=== PATIENT | male | born 1960 | race Caucasian/White ===

== ENCOUNTER → 2019-10-18 | Outpatient (CLI) | payer BC | END | disposition home or self-care (01) | LOC: RADMRIMAIN 11:10 | PROVIDERS: ATTEND Family Medicine | DX: Z53.9 Procedure and treatment not carried out, unspecified reason (principal) ==

== ENCOUNTER → 2020-08-14 | Outpatient (CLI) | payer BC ==
[2020-08-14 10:24] LABS: Basophils % (A) 0 %; Eosinophils # (A) 0.2 k/uL (0-0.7); Eosinophils % (A) 1 %; HGB 16.5 gm/dL (13.0-17.5); Lymphocytes # (A) 1.9 k/uL (1.0-4.8); Lymphocytes % (A) 12 %; Mean Platelet Volume 7.7; Monocytes # (A) 0.7 k/uL (0-1.0); Monocytes % (A) 5 %; Neutrophils # (A) 12.3 k/uL (1.3-7.7); Neutrophils % (A) 81 %; Platelet Count 333 k/uL (150-450); RBC 5.33 m/uL (4.30-5.90); RDW 13.7 % (11.5-15.5); WBC 15.2 k/uL (3.8-10.6)
[2020-08-14 10:45] LABS: African American GFR (CKD) >90 (>60 ml/min/1.73 sqM); Anion Gap 12 mmol/L; Blood Urea Nitrogen 20 mg/dL (9-20); Calcium 10.2 mg/dL (8.4-10.2); Carbon Dioxide 27 mmol/L (22-30); Chloride 98 mmol/L (98-107); Glucose 255 mg/dL (74-99); Non-African American GFR(CKD) >90 (>60 ml/min/1.73 sqM); Sodium 137 mmol/L (137-145)
== END | disposition home or self-care (01) ==
LOC: LABPAT 09:18
PROVIDERS: ATTEND Urology
DX: Z01.818 Encounter for other preprocedural examination (principal); N20.0 Calculus of kidney; R35.0 Frequency of micturition
CPT/HCPCS: 80048; 85025; 87086

== ENCOUNTER 2020-08-21 08:52 | Observation (INO) | payer OTHER ==
[2020-08-21] MEDS ORDERED: SODIUM CHLORIDE 0.9% 1,000 ML IV STA (09:36)
[2020-08-21] MEDS ORDERED: KETOROLAC 15 MG/ML 1 ML VIAL IVP STA (09:36)
[2020-08-21] MEDS ORDERED: ONDANSETRON 4 MG/2 ML VIAL IVP STA (09:36)
[2020-08-21] MEDS ORDERED: HYDROmorphone 1 MG/ML 1 ML SYRINGE IVP STA ×3 (09:37→12:07)
[2020-08-21 10:23] LABS: Basophils # (A) 0.2 k/uL (0-0.2); Basophils % (A) 1 %; Eosinophils # (A) 0.3 k/uL (0-0.7); Eosinophils % (A) 2 %; HCT 47.9 % (39.0-53.0); HGB 16.5 gm/dL (13.0-17.5); Lymphocytes # (A) 2.3 k/uL (1.0-4.8); Lymphocytes % (A) 17 %; MCH 31.5 pg (25.0-35.0); MCHC 34.4 g/dL (31.0-37.0); MCV 91.6 fL (80.0-100.0); Mean Platelet Volume 9.5; Monocytes # (A) 0.8 k/uL (0-1.0); Monocytes % (A) 6 %; Neutrophils # (A) 10.2 k/uL (1.3-7.7); Neutrophils % (A) 74 %; Platelet Count 306 k/uL (150-450); RBC 5.23 m/uL (4.30-5.90); RDW 13.1 % (11.5-15.5); WBC 13.9 k/uL (3.8-10.6)
[2020-08-21 10:36] LABS: ALT 29 U/L (4-49); AST 29 U/L (17-59); African American GFR (CKD) >90 (>60 ml/min/1.73 sqM); Albumin 4.4 g/dL (3.5-5.0); Alkaline Phosphatase 65 U/L (38-126); Amylase 48 U/L (30-110); Anion Gap 10 mmol/L; Blood Urea Nitrogen 15 mg/dL (9-20); Calcium 9.9 mg/dL (8.4-10.2); Carbon Dioxide 25 mmol/L (22-30); Chloride 99 mmol/L (98-107); Glucose 150 mg/dL (74-99); Lipase 109 U/L (23-300); Non-African American GFR(CKD) >90 (>60 ml/min/1.73 sqM); Sodium 134 mmol/L (137-145); Total Bilirubin 1.2 mg/dL (0.2-1.3); Total Protein 7.4 g/dL (6.3-8.2)
[2020-08-21 10:39] LABS: Potassium 4.5 mmol/L (3.5-5.1)
--- NOTE | 2020-08-21 10:40 | ED ---
Abdominal Pain HPI <Zeus Olguin - Last Filed: 08/21/20 11:18> - General Source: patient, RN notes reviewed, old records reviewed Mode of arrival: wheelchair Limitations: no limitations <Ruchi Duran - Last Filed: 08/21/20 11:20> - General Chief Complaint: Abdominal Pain Stated Complaint: kidney stone Time Seen by Provider: 08/21/20 09:11 - History of Present Illness Initial Comments: 5-year-old male presents emergency department today for evaluation for onset of right-sided flank pain and abdominal pain. He reports that he has seen Dr. Gonzalez. He reports he's had scheduled to have kidney stone removed. Patient reports that he is dealing with this pain for the past month. Patient reports t hat he's had nausea and vomiting. Denies any acute fevers or chills. Patient relates that he has been taking [place] at home. (Ruchi Duran) - Related Data Home Medications Medication Instructions Recorded Confirmed Glimepiride [Amaryl] 2 mg PO BID 08/19/20 08/21/20 metFORMIN HCL 1,000 mg PO BID 08/19/20 08/21/20 Allergies Allergy/AdvReac Type Severity Reaction Status Date / Time No Known Allergies Allergy Verified 08/21/20 10:10 Review of Systems ROS Other: All systems not noted in ROS Statement are negative. <Zeus Olguin - Last Filed: 08/21/20 11:18> ROS Other: All systems not noted in ROS Statement are negative. <Ruchi Duran - Last Filed: 08/21/20 11:20> ROS Statement: Those systems with pertinent positive or pertinent negative responses have been documented in the HPI. Past Medical History Past Medical History: Diabetes Mellitus Additional Past Medical History / Comment(s): Kidney stones History of Any Multi-Drug Resistant Organisms: None Reported Past Surgical History: Appendectomy, Bowel Resection, Hernia Repair Additional Past Surgical History / Comment(s): Right knee scop Past Psychological History: No Psychological Hx Reported Smoking Status: Current every day smoker Past Alcohol Use History: None Reported Past Drug Use History: Marijuana <Ruchi Duran - Last Filed: 08/21/20 11:20> General Exam Limitations: no limitations General appearance: alert, in no apparent distress Head exam: Present: atraumatic, normocephalic, normal inspection Eye exam: Present: normal appearance, PERRL, EOMI. Absent: scleral icterus, conjunctival injection, periorbital swelling ENT exam: Present: normal exam, mucous membranes moist Neck exam: Present: normal inspection. Absent: tenderness, meningismus, lymphadenopathy Respiratory exam: Present: normal lung sounds bilaterally. Absent: respiratory distress, wheezes, rales, rhonchi, stridor Cardiovascular Exam: Present: regular rate, normal rhythm, normal heart sounds. Absent: systolic murmur, diastolic murmur, rubs, gallop, clicks GI/Abdominal exam: Present: soft, tenderness (Right-sided lower abdominal tenderness and flank pain), normal bowel sounds. Absent: distended, guarding, rebound, rigid Extremities exam: Present: normal inspection, full ROM, normal capillary refill. Absent: tenderness, pedal edema, joint swelling, calf tenderness Back exam: Present: normal inspection Neurological exam: Present: alert, oriented X3, CN II-XII intact Psychiatric exam: Present: normal affect, normal mood Skin exam: Present: warm, dry, intact, normal color. Absent: rash <Ruchi Duran - Last Filed: 08/21/20 11:20> - General Exam Comments Initial Comments: 5-year-old male. Patient is moderate discomfort. (Ruchi Duran) Course Vital Signs 08/21/20 08/21/20 08:57 10:00 Temperature 97.7 F Pulse Rate 102 H 93 Respiratory 18 18 Rate Blood Pressure 153/93 136/94 O2 Sat by Pulse 96 98 Oximetry Medical Decision Making - Lab Data Result diagrams: 08/21/20 10:15 08/21/20 10:15 <Zeus Olguin - Last Filed: 08/21/20 11:18> - Lab Data Result diagrams: 08/21/20 10:15 08/21/20 10:15 <Ruchi Duran - Last Filed: 08/21/20 11:20> - Medical Decision Making Patient reevaluated and reexamined by myself, Dr. Olguin. Patient still c omplaining of discomfort. I agree with PAs findings are this includes diagnostic interpretation and treatment plan. Patient does have right flank discomfort, with moderate tenderness. Case was discussed with Dr. Aragon was familiar with this patient and would like to admit him for procedure (Olguin,Zeus) - Lab Data Lab Results 08/21/20 08/21/20 Range/Units 10:15 10:15 WBC 13.9 H (3.8-10.6) k/uL RBC 5.23 (4.30-5.90) m/uL Hgb 16.5 (13.0-17.5) gm/dL Hct 47.9 (39.0-53.0) % MCV 91.6 (80.0-100.0) fL MCH 31.5 (25.0-35.0) pg MCHC 34.4 (31.0-37.0) g/dL RDW 13.1 (11.5-15.5) % Plt Count 306 (150-450) k/uL Neutrophils % 74 % Lymphocytes % 17 % Monocytes % 6 % Eosinophils % 2 % Basophils % 1 % Neutrophils # 10.2 H (1.3-7.7) k/uL Lymphocytes # 2.3 (1.0-4.8) k/uL Monocytes # 0.8 (0-1.0) k/uL Eosinophils # 0.3 (0-0.7) k/uL Basophils # 0.2 (0-0.2) k/uL Sodium 134 L (137-145) mmol/L Potassium 4.5 (3.5-5.1) mmol/L Chloride 99 (98-107) mmol/L Carbon Dioxide 25 (22-30) mmol/L Anion Gap 10 mmol/L BUN 15 (9-20) mg/dL Creatinine 0.67 (0.66-1.25) mg/dL Est GFR (CKD-EPI)AfAm >90 (>60 ml/min/1.73 sqM) Est GFR (CKD-EPI)NonAf >90 (>60 ml/min/1.73 sqM) Glucose 150 H (74-99) mg/dL Calcium 9.9 (8.4-10.2) mg/dL Total Bilirubin 1.2 (0.2-1.3) mg/dL AST 29 (17-59) U/L ALT 29 (4-49) U/L Alkaline Phosphatase 65 (38-126) U/L Total Protein 7.4 (6.3-8.2) g/dL Albumin 4.4 (3.5-5.0) g/dL Amylase 48 (30-110) U/L Lipase 109 (23-300) U/L Disposition <Zeus Olguin - Last Filed: 08/21/20 11:18> Is patient prescribed a controlled substance at d/c from ED?: No Time of Disposition: 11:20 <Ruchi Duran - Last Filed: 08/21/20 11:20> Clinical Impression: Right flank pain, Ureteral calculus Disposition: ADMITTED IP TO THIS HOSP Condition: Stable Referrals: Patricia Medina MD [Primary Care Provider] - 1-2 days
[2020-08-21] MEDS ORDERED: KETOROLAC 15 MG/ML 1 ML VIAL IVP PRN (11:20)
[2020-08-21] MEDS ORDERED: NALOXONE 0.4 MG/ML 1 ML VIAL IV PRN (11:20)
[2020-08-21] MEDS ORDERED: ONDANSETRON 4 MG/2 ML VIAL IVP PRN (11:20)
[2020-08-21] MEDS: SODIUM CHLORIDE 0.9% 1,000 ML IV SCH ×2 (11:51→23:34)
[2020-08-21 12:21] LABS: Appearance,Urine Cloudy (Clear); Bilirubin,Urine Negative (Negative); Blood,Urine Small (Negative); Color,Urine Yellow; Glucose,Urine (UA) Negative (Negative); Ketones,Urine 1+ (Negative); Leukocyte Esterase,Urine Small (Negative); Mucus,Urine Many /hpf; Nitrite,Urine Negative (Negative); Protein,Urine 1+ (Negative); RBC,Urine 4 /hpf (0-5); Specific Gravity,Urine 1.024 (1.001-1.035); Squamous Epithelial Cell,Urine 1 /hpf (0-4); Urobilinogen,Urine <2.0 mg/dL (<2.0); WBC,Urine 13 /hpf (0-5)
--- NOTE | 2020-08-21 14:02 | XR ---
KUB HISTORY: Flank pain Frontal KUB and 2 images There is no evident pneumoperitoneum or bowel obstruction. Patient body habitus, overlying bowel gas may obscure detail. Pathologic calcification not identified with certainty. Bone mineralization is no rmal. IMPRESSION: Nonspecific bowel gas pattern.
[2020-08-21] MEDS: HYDROmorphone 1 MG/ML 1 ML SYRINGE IVP PRN ×2 (15:29→17:56)
[2020-08-21] MEDS ORDERED: ONDANSETRON 4 MG/2 ML VIAL ONE (20:05)
[2020-08-21] MEDS ORDERED: SUCCINYLCHOLINE CHLORIDE VIAL 200 MG/10 ML VIAL IV ONE (20:05)
[2020-08-21] MEDS ORDERED: DEXAMETHASONE SOD PHOSPHATE 10 MG/ML 1 ML VIAL ONE (20:05)
[2020-08-21] MEDS ORDERED: GLYCOPYRROLATE 0.2 MG/ML 2 ML VIAL ONE (20:05)
[2020-08-21] MEDS ORDERED: LIDOCAINE 1% INJ 10MG/ML (20 ML MDV) ONE (20:05)
[2020-08-21] MEDS ORDERED: PROPOFOL 10 MG/ML 20 ML VIAL IV ONE (20:05)
[2020-08-21] MEDS ORDERED: NEOSTIGMINE 1 MG/ML 10 ML VIAL ONE (20:05)
[2020-08-21] MEDS ORDERED: ROCURONIUM 10 MG/ML (10 ML VIAL) IV ONE (20:05)
[2020-08-21] MEDS ORDERED: fentaNYL (PF) 50 MCG/ML 2 ML AMP ONE (20:05)
[2020-08-21] MEDS ORDERED: IV FLUID CONTINUATION 1,000 ML IV ONE (20:09)
[2020-08-21] MEDS ORDERED: SODIUM CHLORIDE 0.9% 100 ML with ceFAZolin 2,000 MG IV ONE ×2 (20:25)
[2020-08-21] MEDS ORDERED: IOPAMIDOL-370 50ML BTL IRRIGATION ONE (20:32)
[2020-08-21] MEDS ORDERED: LACTATED RINGERS 1,000 ML IV ONE (20:42)
--- NOTE | 2020-08-21 22:30 | P.OP ---
Date of Procedure: 08/21/20 Preoperative Diagnosis: Right renal calculi Postoperative Diagnosis: Same Procedure(s) Performed: Cystoscopy, right retrograde pyelogram, right ureteroscopy with Holmium laser lithotripsy, right ureteral stent insertion Anesthesia: LYNETTEA Surgeon: Ezio Navarro Estimated Blood Loss (ml): 10 IV fluids (ml): 800 Pathology: none sent Condition: stable Disposition: PACU Indications for Procedure: The patient is a 59-year-old white male with right lower back and lower abdominal pain. He has a history of kidney stones. A computed tomography scan showed 3 right renal calculi, the largest of which measured 5 x 10 mm and was located within the right renal pelvis. The computed tomography scan also showed a 2 mm left renal calculus. Alternative treatment options for the right renal calculi were discussed in detail with the patient, and he elected to undergo ureteroscopy with laser lithotripsy. Operative Findings: 2 right renal pelvic calculi, both fragmented completely. Description of Procedure: The patient was taken to the operating room and placed in the dorsolithotomy position, with legs supported in Max stirrups. The external genitalia was prepped and draped sterilely. The 30 lens was used to introduce the 21-Indonesian Fuentes cystoscopic sheath through the urethra and into the bladder under direct vision. The prostatic urethra showed evidence of mild lateral lobe enlargement. The bladder was examined in its entirety. Both ureteral orifices were normal anatomic location and configuration, and clear urine effluxed from both. No tumors or foreign bodies were seen. Using a 10-Indonesian cone-tipped catheter, a right retrograde pyelogram was performed. The ureter was normal in caliber, though somewhat tortuous distally. No calculi were seen within the ureter. 2 calculi were identified within the right renal pelvis, both identified as filling defects. A 0.025 inch Glidewire was passed through the cystoscope. The ureteral orifice was cannulated, and the Glidewire was advanced up to the renal pelvis. The cystoscope was removed, and an 11/13-Indonesian ureteral access catheter was passed over the wire, up to the proximal ureter. The flexible ureteroscope was then passed through the ureteral access catheter sheath, up to the stone. The 200 micron Holmium laser probe was passed through the ureteroscope, and lithotripsy was performed. Both renal pelvic calculi were fragmented completely, initially utilizing a dusting technique and later utilizing a popcorning technique for any residual calculus fragments. Upon completion, there were no calculus fragments exceeding 1-2 mm in size. The ureteroscope was removed. The Glidewire was passed through the ureteral access catheter sheath, which was removed. The Glidewire was backloaded into the cystoscope, which was passed into the bladder. A 28 cm, 4.8-Indonesian double-J ureteral stent was placed over the wire. Proper stent positioning was verified fluoroscopically and endoscopically. The bladder was emptied and the cystoscope removed. The string was secured to the penis using a Tegaderm dressing. The patient tolerated the procedure well and was taken to the recovery room in stable condition. [facility] [place]: Procedure Acuity: Urgent Stone Size and Location: 5 x 10 mm, right renal pelvis Ureteral Dilation: No Ureteral Access Sheath Used: Yes Stone Sent for Analysis: Yes All Stones/Fragments Were Removed with a Basket: No Complications: No Preoperative Antibiotics Given: Yes Stent Placed: Yes If Stent Placed, Was String Left Attached: Yes If Stent Placed, When is it to be Removed: 1 week Discharge Medications: None
[2020-08-21] MEDS ORDERED: HYDROcodone/APAP 5-325MG 1 EACH TAB PO PRN (22:32)
[2020-08-21 22:50] LABS: Glucose,Whole Blood 173 mg/dL (75-99)
[2020-08-21] MEDS: HYDROcodone/APAP 5-325MG 1 EACH TAB PO PRN (23:33)
[2020-08-22] MEDS: HYDROmorphone 1 MG/ML 1 ML SYRINGE IVP PRN ×2 (01:20→04:17)
[2020-08-22 06:30] LABS: Glucose,Whole Blood 241 mg/dL (75-99)
[2020-08-22 08:02] VITALS: BP 146/68; PULSE 112; TEMP 98
[2020-08-22] MEDS: HYDROcodone/APAP 5-325MG 1 EACH TAB PO PRN (08:09)
[2020-08-22] MEDS: SODIUM CHLORIDE 0.9% 1,000 ML IV SCH (08:12)
--- NOTE | 2020-08-22 08:15 | FL ---
Fluoroscopy HISTORY: Stone removal, stent placement 52 seconds fluoroscopy time supplied to the referring clinician. 4 intraoperative C-arm images docum ent the procedure. See dictated report from urology.
[2020-08-22 08:57] VITALS: RESP 16
[2020-08-22] MEDS ORDERED: TAMSULOSIN 0.4 MG CAP.ER.24H PO SCH (09:00)
[2020-08-22] MEDS ORDERED: PANTOPRAZOLE 40 MG/10 ML VIAL IV SCH (09:00)
[2020-08-22] MEDS ORDERED: GLIMEPIRIDE 2 MG TAB PO SCH (09:00)
--- NOTE | 2020-08-22 09:14 | P.DS ---
Providers Date of admission: 08/21/20 11:18 Expected date of discharge: 08/22/20 Attending physician: Ezio Navarro Primary care physician: Patricia Medina Hospital Course: The patient was admitted with severe right flank pain. He underwent right ureteroscopy with laser lithotripsy. 2 right renal pelvic calculi were fragmented completely. A ureteral stent was left in place. However, overnight the Tegaderm dressing came off of the penis and he reported continuous urine drainage on the first postoperative day. It was apparent that the ureteral stent had migrated distally, and therefore was removed. He was otherwise feeling well and was thus discharged home. Procedures: Cystoscopy, right ureteroscopy with Holmium laser lithotripsy, right ureteral stent insertion on 08/21/2020. Patient Condition at Discharge: Good Plan - Discharge Summary Discharge Rx Participant: No New Discharge Prescriptions: New Tamsulosin [Flomax] 0.4 mg PO DAILY #30 cap No Action metFORMIN HCL 1,000 mg PO BID Glimepiride [Amaryl] 2 mg PO BID Discharge Medication List Glimepiride [Amaryl] 2 mg PO BID 08/19/20 [History] metFORMIN HCL 1,000 mg PO BID 08/19/20 [History] Tamsulosin [Flomax] 0.4 mg PO DAILY #30 cap 08/22/20 [Rx] Follow up Appointment(s)/Referral(s): Patricia Medina MD [Primary Care Provider] - 1-2 days Ezio Navarro MD [STAFF PHYSICIAN] - 1 Week Activity/Diet/Wound Care/Special Instructions: Diet as tolerated. Activity as tolerated. Strain urine for 1 week. Discharge Disposition: HOME SELF-CARE
[2020-08-23] MEDS ORDERED: metFORMIN 500 MG TAB PO SCH (21:00)
== END 2020-08-22 10:25 | disposition home or self-care (01) ==
LOC: EC 08:52 → 1SOBS 11:18
PROVIDERS: ADMIT Urology; ATTEND Urology
DX: N20.1 Calculus of ureter (principal); E11.9 Type 2 diabetes mellitus without complications; F17.200 Nicotine dependence, unspecified, uncomplicated; N20.2 Calculus of kidney with calculus of ureter
CPT/HCPCS: 52356; 96376 ×2; 96361; 96374; 96375; 99285; 36415; 80053; 82150; 83690; 85025; 81001; 87086; 74420; 74018; G0378 ×2; C2625; C1758; C1769; J0330; J1100; J2710; J2405; J0690; J2001; J3010; J1170 ×2; J1885; J2704; C9113; Q9967

== ENCOUNTER 2020-08-23 12:19 | Observation (INO) | payer OTHER ==
--- NOTE | 2020-08-23 12:29 | ED ---
Recheck HPI - General Chief Complaint: Recheck/Abnormal Lab/Rx Stated Complaint: pain all over Time Seen by Provider: 08/23/20 12:26 Source: patient Mode of arrival: ambulatory - History of Present Illness Initial Comments: Patient is 59-year-old male presenting to the emergency department with a chief complaint of pain all over. Patient states he has history of renal stones and was admitted 2 days ago for renal stone. Patient states he underwent lithotripsy by followed by stent placement which removed the following day. Patient states he was discharged yesterday from the hospital. Patient states she was doing well and was discharged with [place]. Patient states she has been taking for particles per day and is not even touching his pain. Patient reports he continues to have right flank pain but now it is also going into all of his joints. Patient reports the pain could not be tolerated with oral tablets and only with IV analgesia. Patient states there is no nausea or vomiting diarrhea. Denies chest pain shortness of breath. Denies night sweats or chills. - Related Data Home Medications Medication Instructions Recorded Confirmed Glimepiride [Amaryl] 2 mg PO BID 08/19/20 08/23/20 metFORMIN HCL 1,000 mg PO BID 08/19/20 08/23/20 HYDROcodone/APAP 5-325MG [[place] 2 tab PO Q8H PRN 08/23/20 08/23/20 5-325] Previous Rx's Medication Instructions Recorded Tamsulosin [Flomax] 0.4 mg PO DAILY #30 cap 08/22/20 Allergies Allergy/AdvReac Type Severity Reaction Status Date / Time No Known Allergies Allergy Verified 08/23/20 14:12 Review of Systems ROS Statement: Those systems with pertinent positive or pertinent negative responses have been documented in the HPI. ROS Other: All systems not noted in ROS Statement are negative. Past Medical History Past Medical History: Diabetes Mellitus, GERD/Reflux, Pneumonia Additional Past Medical History / Comment(s): NIDDM type II, past R kidney stones with surgery, bilateral tinnitis, diverticultis/colon abscess/bowel resection, History of Any Multi-Drug Resistant Organisms: None Reported Past Surgical History: Appendectomy, Bowel Resection, Hernia Repair, Orthopedic Surgery Additional Past Surgical History / Comment(s): Colonoscopies, lower abdominal hernia repair, R sided lithotripsy, R knee arthroscopy, R rotator cuff repair. Past Anesthesia/Blood Transfusion Reactions: No Reported Reaction Past Psychological History: No Psychological Hx Reported Smoking Status: Former smoker Past Alcohol Use History: None Reported Past Drug Use History: Marijuana - Past Family History Father Family Medical History: Cancer Mother Family Medical History: Cancer General Exam Limitations: no limitations General appearance: alert, in no apparent distress, obese Head exam: Present: atraumatic, normocephalic, normal inspection Eye exam: Present: normal appearance, PERRL, EOMI Pupils: Present: normal accommodation ENT exam: Present: normal exam, normal oropharynx, mucous membranes moist, TM's normal bilaterally, normal external ear exam Neck exam: Present: normal inspection, full ROM. Absent: tenderness Respiratory exam: Present: normal lung sounds bilaterally. Absent: respiratory distress, wheezes, rales Cardiovascular Exam: Present: regular rate, normal rhythm, normal heart sounds GI/Abdominal exam: Present: soft, tenderness (Right flank tenderness). Absent: distended Extremities exam: Present: normal inspection, full ROM, normal capillary refill. Absent: tenderness, pedal edema, joint swelling Back exam: Present: normal inspection, full ROM, CVA tenderness (R). Absent: tenderness, CVA tenderness (L), muscle spasm, paraspinal tenderness, vertebral tenderness Neurological exam: Present: alert, oriented X3, normal gait. Absent: altered Psychiatric exam: Present: normal affect, normal mood. Absent: depressed, agitated Skin exam: Present: warm, dry, intact, normal color. Absent: rash Course Vital Signs 08/23/20 08/23/20 08/23/20 12:21 13:55 16:06 Temperature 98.1 F 98.4 F Pulse Rate 96 98 100 Respiratory 18 20 20 Rate Blood Pressure 192/93 184/104 170/93 O2 Sat by Pulse 98 97 96 Oximetry 08/23/20 16:33 Temperature Pulse Rate Respiratory Rate Blood Pressure 167/70 O2 Sat by Pulse Oximetry Medical Decision Making - Medical Decision Making Patient is 59-year-old male with history of stones presenting to emergency Department with chief complaint of kidney stone pain. Physical examination reveals right CVA tenderness. However, he continues to complain of joint pain throughout his whole body. He is taking multiple [place] today with no improvement in symptoms. Patient was given up to 3 mg of Dilaudid and a single dose of Toradol in the emergency department. Patient continues to be symptomati c. He was also given antiemetics after he vomited here. CT of abdomen and pelvis reveals right-sided hydronephrosis and hydroureter with no obstructing stone detected. spoke with Dr Navarro who will admit. - Lab Data Result diagrams: 08/23/20 12:50 08/23/20 12:50 Lab Results 08/23/20 08/23/20 08/23/20 Range/Units 12:50 12:50 12:50 WBC 18.4 H (3.8-10.6) k/uL RBC 4.87 (4.30-5.90) m/uL Hgb 15.4 (13.0-17.5) gm/dL Hct 44.8 (39.0-53.0) % MCV 91.9 (80.0-100.0) fL MCH 31.7 (25.0-35.0) pg MCHC 34.4 (31.0-37.0) g/dL RDW 13.2 (11.5-15.5) % Plt Count 300 (150-450) k/uL Neutrophils % 79 % Lymphocytes % 13 % Monocytes % 6 % Eosinophils % 1 % Basophils % 1 % Neutrophils # 14.6 H (1.3-7.7) k/uL Lymphocytes # 2.4 (1.0-4.8) k/uL Monocytes # 1.0 (0-1.0) k/uL Eosinophils # 0.1 (0-0.7) k/uL Basophils # 0.1 (0-0.2) k/uL Sodium 136 L (137-145) mmol/L Potassium 4.0 (3.5-5.1) mmol/L Chloride 103 (98-107) mmol/L Carbon Dioxide 23 (22-30) mmol/L Anion Gap 10 mmol/L BUN 19 (9-20) mg/dL Creatinine 0.80 (0.66-1.25) mg/dL Est GFR (CKD-EPI)AfAm >90 (>60 ml/min/1.73 sqM) Est GFR (CKD-EPI)NonAf >90 (>60 ml/min/1.73 sqM) Glucose 216 H (74-99) mg/dL Plasma Lactic Acid Idris (0.7-2.0) mmol/L Calcium 9.6 (8.4-10.2) mg/dL Total Bilirubin 0.7 (0.2-1.3) mg/dL AST 30 (17-59) U/L ALT 27 (4-49) U/L Alkaline Phosphatase 75 (38-126) U/L Total Protein 7.2 (6.3-8.2) g/dL Albumin 4.3 (3.5-5.0) g/dL Urine Color Yellow Urine Appearance Clear (Clear) Urine pH 6.0 (5.0-8.0) Ur Specific Oracle 1.026 (1.001-1.035) Urine Protein 1+ H (Negative) Urine Glucose (UA) 3+ H (Negative) Urine Ketones Trace H (Negative) Urine Blood Large H (Negative) Urine Nitrite Negative (Negative) Urine Bilirubin Negative (Negative) Urine Urobilinogen <2.0 (<2.0) mg/dL Ur Leukocyte Esterase Small H (Negative) Urine RBC >182 H (0-5) /hpf Urine WBC 22 H (0-5) /hpf Ur Squamous Epith Cells <1 (0-4) /hpf Urine Mucus Many H (None) /hpf 08/23/ Range/Units 13:32 WBC (3.8-10.6) k/uL RBC (4.30-5.90) m/uL Hgb (13.0-17.5) gm/dL Hct (39.0-53.0) % MCV (80.0-100.0) fL MCH (25.0-35.0) pg MCHC (31.0-37.0) g/dL RDW (11.5-15.5) % Plt Count (150-450) k/uL Neutrophils % % Lymphocytes % % Monocytes % % Eosinophils % % Basophils % % Neutrophils # (1.3-7.7) k/uL Lymphocytes # (1.0-4.8) k/uL Monocytes # (0-1.0) k/uL Eosinophils # (0-0.7) k/uL Basophils # (0-0.2) k/uL Sodium (137-145) mmol/L Potassium (3.5-5.1) mmol/L Chloride (98-107) mmol/L Carbon Dioxide (22-30) mmol/L Anion Gap mmol/L BUN (9-20) mg/dL Creatinine (0.66-1.25) mg/dL Est GFR (CKD-EPI)AfAm (>60 ml/min/1.73 sqM) Est GFR (CKD-EPI)NonAf (>60 ml/min/1.73 sqM) Glucose (74-99) mg/dL Plasma Lactic Acid Idris 1.7 (0.7-2.0) mmol/L Calcium (8.4-10.2) mg/dL Total Bilirubin (0.2-1.3) mg/dL AST (17-59) U/L ALT (4-49) U/L Alkaline Phosphatase (38-126) U/L Total Protein (6.3-8.2) g/dL Albumin (3.5-5.0) g/dL Urine Color Urine Appearance (Clear) Urine pH (5.0-8.0) Ur Specific Oracle (1.001-1.035) Urine Protein (Negative) Urine Glucose (UA) (Negative) Urine Ketones (Negative) Urine Blood (Negative) Urine Nitrite (Negative) Urine Bilirubin (Negative) Urine Urobilinogen (<2.0) mg/dL Ur Leukocyte Esterase (Negative) Urine RBC (0-5) /hpf Urine WBC (0-5) /hpf Ur Squamous Epith Cells (0-4) /hpf Urine Mucus (None) /hpf Disposition Clinical Impression: Intractable abdominal pain, Kidney stone, Hydronephrosis Disposition: ADMITTED IP TO THIS [facility] Condition: Good Instructions (If sedation given, give patient instructions): Abdominal Pain (ED) Additional Instructions: She will be admitted Is patient prescribed a controlled substance at d/c from ED?: No Referrals: Patricia Medina MD [Primary Care Provider] - 1-2 days Time of Disposition: 16:55
[2020-08-23] MEDS ORDERED: HYDROmorphone 1 MG/ML 1 ML SYRINGE IVP STA ×3 (12:38→14:36)
[2020-08-23 13:01] LABS: Basophils # (A) 0.1 k/uL (0-0.2); Basophils % (A) 1 %; Eosinophils # (A) 0.1 k/uL (0-0.7); Eosinophils % (A) 1 %; HCT 44.8 % (39.0-53.0); HGB 15.4 gm/dL (13.0-17.5); Lymphocytes # (A) 2.4 k/uL (1.0-4.8); Lymphocytes % (A) 13 %; MCH 31.7 pg (25.0-35.0); MCHC 34.4 g/dL (31.0-37.0); MCV 91.9 fL (80.0-100.0); Mean Platelet Volume 7.9; Monocytes % (A) 6 %; Neutrophils # (A) 14.6 k/uL (1.3-7.7); Neutrophils % (A) 79 %; Platelet Count 300 k/uL (150-450); RBC 4.87 m/uL (4.30-5.90); RDW 13.2 % (11.5-15.5); WBC 18.4 k/uL (3.8-10.6)
[2020-08-23 13:09] LABS: ALT 27 U/L (4-49); AST 30 U/L (17-59); African American GFR (CKD) >90 (>60 ml/min/1.73 sqM); Albumin 4.3 g/dL (3.5-5.0); Alkaline Phosphatase 75 U/L (38-126); Anion Gap 10 mmol/L; Blood Urea Nitrogen 19 mg/dL (9-20); Calcium 9.6 mg/dL (8.4-10.2); Carbon Dioxide 23 mmol/L (22-30); Chloride 103 mmol/L (98-107); Glucose 216 mg/dL (74-99); Non-African American GFR(CKD) >90 (>60 ml/min/1.73 sqM); Sodium 136 mmol/L (137-145); Total Bilirubin 0.7 mg/dL (0.2-1.3); Total Protein 7.2 g/dL (6.3-8.2)
[2020-08-23 13:25] LABS: Appearance,Urine Clear (Clear); Bilirubin,Urine Negative (Negative); Blood,Urine Large (Negative); Color,Urine Yellow; Glucose,Urine (UA) 3+ (Negative); Ketones,Urine Trace (Negative); Leukocyte Esterase,Urine Small (Negative); Mucus,Urine Many /hpf; Nitrite,Urine Negative (Negative); Protein,Urine 1+ (Negative); RBC,Urine >182 /hpf (0-5); Specific Gravity,Urine 1.026 (1.001-1.035); Squamous Epithelial Cell,Urine <1 /hpf (0-4); Urobilinogen,Urine <2.0 mg/dL (<2.0); WBC,Urine 22 /hpf (0-5)
--- NOTE | 2020-08-23 15:23 | CT ---
EXAMINATION TYPE: CT abdomen pelvis w con DATE OF EXAM: 08/23/2020 COMPARISON: None INDICATION: Right flank pain. DLP: 3751.4 mGycm, Automated exposure control for dose reduction was used. CONTRAST: 100 mL of Isovue 300. Study performed without Oral Contrast TECHNIQUE: Axial images were obtained from above the diaphragm to the pubic rami in the axial plane a t 5 mm thick sections. Reconstructed images are reviewed on the computer in the coronal plane. FINDINGS: Limited CT sections are obtained the lung bases. The lung bases are clear. CT ABDOMEN: Liver: There is moderate fatty infiltration to the liver. No discrete masses are evident. Small area of sparing may be present within the anterior right lobe liver. Hemangioma could be considered. Spleen: Normal. Small splenule may be inferior to the spleen. Pancreas: Normal Adrenal glands: The adrenal glands are normal. Gallbladder: Normal Kidneys: No masses are evident. No hydronephrosis is present. No cysts are present. There is a 0.3 cm calcification at the mid to inferior posterior left kidney which is nonobstructing. Perinephric s tranding is at the right kidney. There is a calcification without obstruction in the inferior pole me asuring 0.4 cm. Additional punctate posterior nonobstructing renal stone measuring 0.2 cm is present. There are several small calcifications in the upper pole left kidney, largest measures 0.4 cm. There is some mild left hydronephrosis. Some calcification or contrast may be within the left renal collec ting system. There is mild prominence of the left ureter which increases in prominence in the pelvis. Nonobstructing calcification however is not identified. This extends to the urinary bladder. No obst ructing ureteral stone is identified. Note is made a slight delay of contrast excretion on the right compared to the left on delayed images. Aorta: Vascular calcification is within the aorta. Inferior vena cava: Normal. CT PELVIS: Loops of bowel within the abdomen and pelvis are normal. The study is without oral contrast limit ing bowel evaluation. Appendix: Not visualized. No suspicious tubular structures or inflammatory changes evident. Urinary bladder: Slightly decompressed with limited evaluation. No obvious renal stones are evident. No suspicious renal stone at the ureterovesical junction on the right is identified. No obvious philip s are evident. Genitourinary structures: Prostate appears within normal limits Osseous structures: No suspicious lytic or sclerotic lesions. IMPRESSIONS: 1. Bilateral nonobstructing renal stones measuring up to 0.4 cm, greater on the right. 2. Moderate right hydronephrosis and right hydroureter extending to the urinary bladder. However, an obstructing ureteral stone is not identified. 3. Delayed excretion of contrast from the right kidney compared to the left. 4. Moderate fatty infiltration liver.
[2020-08-23] MEDS ORDERED: KETOROLAC 15 MG/ML 1 ML VIAL IVP STA (16:10)
[2020-08-23] MEDS ORDERED: ONDANSETRON 4 MG/2 ML VIAL IVP STA (16:10)
--- NOTE | 2020-08-23 16:20 | XR ---
EXAMINATION TYPE: XR KUB DATE OF EXAM: 08/23/2020 COMPARISON: 08/21/2020 INDICATION: Flank pain TECHNIQUE: Single view abdomen frontal upright view FINDINGS: Normal colonic bowel gas is present. Nonspecific small bowel gas is present. Bowel gas volume is incr easing. No suspicious air-fluid levels or free the air is evident. No mass effect is evident. Contras t is within the urinary bladder. Psoas margins are normal IMPRESSION: 1. Nonspecific abdomen.
[2020-08-23] MEDS ORDERED: cefTRIAXone IN SWFI 1,000 MG/10 ML SYRINGE IVP STA (16:40)
[2020-08-23] MEDS ORDERED: ONDANSETRON 4 MG/2 ML VIAL IVP PRN (16:44)
[2020-08-23] MEDS ORDERED: HYDROcodone/APAP 5-325MG 1 EACH TAB PO PRN (16:44)
[2020-08-23] MEDS ORDERED: MORPHINE SULFATE 4 MG/ML SYRINGE IV PRN (16:44)
[2020-08-23] MEDS ORDERED: LORazepam 2 MG/ML INJ IV PRN (16:44)
[2020-08-23] MEDS ORDERED: NALOXONE 0.4 MG/ML 1 ML VIAL IV PRN (16:44)
[2020-08-23] MEDS ORDERED: HYDROmorphone 0.5 MG/0.5 ML SYRINGE IVP PRN (16:44)
[2020-08-23] MEDS ORDERED: ACETAMINOPHEN TAB 325 MG TAB PO PRN (16:44)
[2020-08-23] MEDS: SODIUM CHLORIDE 0.9% 1,000 ML IV SCH (18:39)
[2020-08-23 21:39] LABS: Glucose,Whole Blood 251 mg/dL (75-99)
[2020-08-23] MEDS: GLIMEPIRIDE 2 MG TAB PO SCH (21:45)
[2020-08-23] MEDS: metFORMIN 500 MG TAB PO SCH (21:46)
[2020-08-23] MEDS: HYDROmorphone 1 MG/ML 1 ML SYRINGE IVP PRN (23:04)
[2020-08-24] MEDS: HYDROmorphone 1 MG/ML 1 ML SYRINGE IVP PRN (05:04)
[2020-08-24 06:01] LABS: Glucose,Whole Blood 237 mg/dL (75-99)
--- NOTE | 2020-08-24 07:43 | P.GSHP ---
History of Present Illness H&P Date: 08/24/20 Chief Complaint: Right flank pain The patient is a 59-year-old white male with right lower back and lower abdominal pain. He has a history of kidney stones. A CT scan showed 3 right renal calculi, the largest of which measured 5 x 10 mm and was located within the right renal pelvis. The CT scan also showed a 2 mm left renal calculus. He underwent ureteroscopy with laser lithotripsy on 08/21/2020. The 2 largest calculi were identified and fragmented. A ureteral stent was left in place, tied to a string. However, the tape came loose from the penis and the suture pa rtially pulled the stent out. The stent was thus removed on August 22, and the patient is now experiencing severe right flank pain. CT scan shows evidence of right hydroureteronephrosis, along with some residual right renal calculi. No ureteral calculi are seen. - Constitutional Constitutional: Denies chills, Denies fever - Genitourinary (Male) Genitourinary: Reports flank pain, Reports hematuria, Reports kidney stones Past Medical History Past Medical History: Diabetes Mellitus, GERD/Reflux Additional Past Medical History / Comment(s): NIDDM type II, past R kidney stones with surgery, bilateral tinnitis, diverticultis/colon abscess/bowel rese ction, History of Any Multi-Drug Resistant Organisms: None Reported Past Surgical History: Appendectomy, Bowel Resection, Hernia Repair, Orthopedic Surgery Additional Past Surgical History / Comment(s): Colonoscopies, lower abdominal hernia repair, R sided lithotripsy, R knee arthroscopy, R rotator cuff repair. Past Anesthesia/Blood Transfusion Reactions: No Reported Reaction Past Psychological History: No Psychological Hx Reported Additional Psychological History / Comment(s): Pt resides with significant other. He is independent. Smoking Status: Former smoker Past Alcohol Use History: None Reported Additional Past Alcohol Use History / Comment(s): Pt started smoking in 1978 and quit once for 15 years, then quit for good in 2016 Past Drug Use History: Marijuana Additional Drug Use History / Comment(s): Pt states he smokes 2-3 joints a day. - Past Family History Father Family Medical History: Cancer Mother Family Medical History: Cancer Medications and Allergies Home Medications Medication Instructions Recorded Confirmed Type Glimepiride [Amaryl] 2 mg PO BID 08/19/20 08/23/20 History metFORMIN HCL 1,000 mg PO BID 08/19/20 08/23/20 History Tamsulosin [Flomax] 0.4 mg PO DAILY #30 cap 08/22/20 08/23/20 Rx HYDROcodone/APAP 5-325MG [[place] 2 tab PO Q8H PRN 08/23/20 08/23/20 History 5-325] Allergies Allergy/AdvReac Type Severity Reaction Status Date / Time No Known Allergies Allergy Verified 08/23/20 14:12 Surgical - Exam Vital Signs Temp Pulse Resp BP Pulse Ox 98.1 F 96 18 192/93 98 08/23/20 12:21 08/23/20 12:21 08/23/20 12:21 08/23/20 12:21 08/23/20 12:21 - General well developed, well nourished, moderate distress - Respiratory normal respiratory effort - Abdomen Abdomen: soft, non tender, no guarding, no rigid, no rebound - Genitourinary normal penis with no external lesions, testicles non-tender - Psychiatric oriented to time, oriented to person, oriented to place, speech is normal, memory intact Results - Labs 08/23/20 12:50 08/23/20 12:50 Abnormal Lab Results - Last 24 Hours (Table) 08/23/20 08/23/20 08/23/20 Range/Units 12:50 12:50 12:50 WBC 18.4 H (3.8-10.6) k/uL Neutrophils # 14.6 H (1.3-7.7) k/uL Sodium 136 L (137-145) mmol/L Glucose 216 H (74-99) mg/dL POC Glucose (mg/dL) (75-99) mg/dL Urine Protein 1+ H (Negative) Urine Glucose (UA) 3+ H (Negative) Urine Ketones Trace H (Negative) Urine Blood Large H (Negative) Ur Leukocyte Esterase Small H (Negative) Urine RBC >182 H (0-5) /hpf Urine WBC 22 H (0-5) /hpf Urine Mucus Many H (None) /hpf 08/23/20 08/24/20 Range/Units 21:38 05:59 WBC (3.8-10.6) k/uL Neutrophils # (1.3-7.7) k/uL Sodium (137-145) mmol/L Glucose (74-99) mg/dL POC Glucose (mg/dL) 251 H 237 H (75-99) mg/dL Urine Protein (Negative) Urine Glucose (UA) (Negative) Urine Ketones (Negative) Urine Blood (Negative) Ur Leukocyte Esterase (Negative) Urine RBC (0-5) /hpf Urine WBC (0-5) /hpf Urine Mucus (None) /hpf Microbiology - Last 24 Hours (Table) 08/23/20 12:50 Urine Culture - Preliminary Urine,Voided Diabetes panel 08/23/20 Range/Units 12:50 Sodium 136 L (137-145) mmol/L Potassium 4.0 (3.5-5.1) mmol/L Chloride 103 (98-107) mmol/L Carbon Dioxide 23 (22-30) mmol/L BUN 19 (9-20) mg/dL Creatinine 0.80 (0.66-1.25) mg/dL Glucose 216 H (74-99) mg/dL Calcium 9.6 (8.4-10.2) mg/dL AST 30 (17-59) U/L ALT 27 (4-49) U/L Alkaline Phosphatase 75 (38-126) U/L Total Protein 7.2 (6.3-8.2) g/dL Albumin 4.3 (3.5-5.0) g/dL Calcium panel 08/23/20 Range/Units 12:50 Calcium 9.6 (8.4-10.2) mg/dL Albumin 4.3 (3.5-5.0) g/dL Pituitary panel 08/23/20 Range/Units 12:50 Sodium 136 L (137-145) mmol/L Potassium 4.0 (3.5-5.1) mmol/L Chloride 103 (98-107) mmol/L Carbon Dioxide 23 (22-30) mmol/L BUN 19 (9-20) mg/dL Creatinine 0.80 (0.66-1.25) mg/dL Glucose 216 H (74-99) mg/dL Calcium 9.6 (8.4-10.2) mg/dL Adrenal panel 08/23/20 Range/Units 12:50 Sodium 136 L (137-145) mmol/L Potassium 4.0 (3.5-5.1) mmol/L Chloride 103 (98-107) mmol/L Carbon Dioxide 23 (22-30) mmol/L BUN 19 (9-20) mg/dL Creatinine 0.80 (0.66-1.25) mg/dL Glucose 216 H (74-99) mg/dL Calcium 9.6 (8.4-10.2) mg/dL Total Bilirubin 0.7 (0.2-1.3) mg/dL AST 30 (17-59) U/L ALT 27 (4-49) U/L Alkaline Phosphatase 75 (38-126) U/L Total Protein 7.2 (6.3-8.2) g/dL Albumin 4.3 (3.5-5.0) g/dL - Imaging CT scan - abdomen: report reviewed, image reviewed Assessment and Plan (1) Calculus of kidney Current Visit: Yes Status: Acute Code(s): N20.0 - CALCULUS OF KIDNEY SNOMED Code(s): 46293453 Plan: Cystoscopy, right ureteroscopy with Holmium laser lithotripsy and stone basketi ng, right ureteral stent insertion. Risks include anesthesia, bleeding, infection, and ureteral injury.
[2020-08-24] MEDS: GLIMEPIRIDE 2 MG TAB PO SCH (08:20)
[2020-08-24] MEDS: metFORMIN 500 MG TAB PO SCH (08:21)
[2020-08-24] MEDS: SODIUM CHLORIDE 0.9% 1,000 ML IV SCH (08:21)
[2020-08-24] MEDS ORDERED: TAMSULOSIN 0.4 MG CAP.ER.24H PO SCH (09:00)
[2020-08-24] MEDS ORDERED: MIDAZOLAM 2 MG/2 ML VIAL ONE (10:30)
[2020-08-24] MEDS ORDERED: SUCCINYLCHOLINE CHLORIDE 100 MG/5 ML SYR IV ONE (10:30)
[2020-08-24] MEDS ORDERED: PROPOFOL 10 MG/ML 20 ML VIAL IV ONE (10:30)
[2020-08-24] MEDS ORDERED: ONDANSETRON 4 MG/2 ML VIAL ONE (10:30)
[2020-08-24] MEDS ORDERED: LIDOCAINE 1% INJ 10MG/ML (20 ML MDV) ONE (10:30)
[2020-08-24] MEDS ORDERED: fentaNYL (PF) 50 MCG/ML 2 ML AMP ONE (10:30)
[2020-08-24] MEDS ORDERED: LACTATED RINGERS 1,000 ML IV ONE (10:43)
[2020-08-24 11:48] VITALS: TEMP 97.5
--- NOTE | 2020-08-24 11:52 | P.OP ---
Date of Procedure: 08/24/20 Preoperative Diagnosis: Right Renal Calculi Postoperative Diagnosis: Same Procedure(s) Performed: Cystoscopy, right ureteroscopy with Holmium laser lithotripsy and stone basketing, right ureteral stent insertion Anesthesia: LU Surgeon: Ezio Navarro Estimated Blood Loss (ml): 5 IV fluids (ml): 600 Pathology: other (Calculus fragment, sent for chemical analysis) Condition: stable Disposition: PACU Indications for Procedure: The patient is a 59-year-old white male with right lower back and lower abdominal pain. He has a history of kidney stones. A CT scan showed 3 right renal calculi, the largest of which measured 5 x 10 mm and was located within the right renal pelvis. The CT scan also showed a 2 mm left renal calculus. He underwent ureteroscopy with laser lithotripsy on 08/21/2020. The 2 largest calculi were identified and fragmented. A ureteral stent was left in place, tied to a string. However, the tape came loose from the penis and the suture partially pulled the stent out. The stent was thus removed on August 22, and the patient is now experiencing severe right flank pain. CT scan shows evidence of right hydroureteronephrosis, along with some residual right renal calculi. No ureteral calculi are seen. Operative Findings: The ureter was somewhat tortuous. There are no ureteral calculi. Multiple tiny calculus fragments are seen within the right intrarenal collecting system, predominantly within an upper pole calyx. Description of Procedure: The patient was taken to the operating room and placed in the dorsolithotomy position, with legs supported in Max stirrups. The external genitalia was prepped and draped sterilely. The 30 lens was used to introduce the 21-[place] Fuentes cystoscopic sheath through the urethra and into the bladder under direct vision. The prostatic urethra showed evidence of mild lateral lobe enlargement. The bladder was examined in its entirety. The left ureteral orifice appeared normal. The right ureteral orifice was dilated due to recent surgery. A small right posterior bladder wall diverticulum was seen. No tumors or foreign bodies were seen. A 0.038 inch Glidewire was passed through the cystoscope. The right ureteral orifice was cannulated, and the Glidewire was advanced up to the renal pelvis. The cystoscope was removed, and an 11/13-[place] ureteral access catheter was passed over the wire, up to the proximal ureter. The flexible ureteroscope was then passed through the ureteral access catheter sheath and advanced through the proximal ureter under direct vision. Some tiny calculus fragments were seen within the right renal pelvis. Within an upper pole calyx was a collection of calculus fragments, all measuring less than 3 mm in size. The 200 micron Holmium laser probe was passed through the ureteroscope, and lithotripsy was performed to further reduce the size of these calculus fragments. The 1.9-[place] nitinol basket was then passed through the ureteroscope, and an attempt was made to remove the calculus fragments via Stone basketing. Several pieces of mucus were basketed and removed, with calculus fragments embedded within it. However, all of the remaining calculus fragments were too small to successfully basket. The only other area containing calculus fragments was a lower pole calyx, and again these were tiny calculus fragments embedded within mucus which was removed. During stone basketing, the ureteral access catheter sheath migrated out of the ureter. Ureteroscopy was repeated, verifying the absence of calculus fragments within the ureter. The Glidewire was passed through the ureteroscope, which was then removed. The Glidewire was backloaded into the cystoscope, which was passed into the bladder. A 26 cm, 6- [place] double-J ureteral stent was placed over the wire. Proper stent positioning was verified fluoroscopically and endoscopically. The bladder was emptied and the cystoscope removed. The patient tolerated the procedure well and was taken to the recovery room in stable condition. [employer] Report: Procedure Acuity: Urgent Stone Size and Location: Multiple right upper pole calculus fragments, measuring up to 3 mm in size. Ureteral Dilation: No Ureteral Access Sheath Used: Yes Stone Sent for Analysis: Yes All Stones/Fragments Were Removed with a Basket: No Complications: No Preoperative Antibiotics Given: Yes Stent Placed: Yes If Stent Placed, Was String Left Attached: No If Stent Placed, When is it to be Removed: 2 weeks Discharge Medications: Tamsulosin
[2020-08-24 11:57] LABS: Glucose,Whole Blood 197 mg/dL (75-99)
--- NOTE | 2020-08-24 12:07 | FL ---
Fluoroscopy INDICATION: Pain FINDINGS: Fluoroscopy time: 33 seconds. Images obtained: 2. IMPRESSIONS: 1. Documentation of fluoroscopy.
[2020-08-24 12:40] LABS: Glucose,Whole Blood 197 mg/dL (75-99)
[2020-08-24 12:54] VITALS: PULSE 100; RESP 18
[2020-08-24 13:48] VITALS: BP 166/77
--- NOTE | 2020-08-24 14:44 | P.DS ---
Providers Date of admission: 08/23/20 16:42 Expected date of discharge: 08/24/20 Attending physician: Ezio Navarro Primary care physician: Patricia Medina - Discharge Diagnosis(es) (1) Calculus of kidney Current Visit: Yes Status: Acute Hospital Course: The patient is a 59-year-old white male with right lower back and lower abdominal pain. He has a history of kidney stones. A CT scan showed 3 right renal calculi, the largest of which measured 5 x 10 mm and was located within the right renal pelvis. The CT scan also showed a 2 mm left renal calculus. He underwent ureteroscopy with laser lithotripsy on 08/21/2020. The 2 largest calculi were identified and fragmented. A ureteral stent was left in place, tied to a string. However, the tape came loose from the penis and the suture partially pulled the stent out. The stent was thus removed on August 22, and the patient is now experiencing severe right flank pain. CT scan shows evidence of right hydroureteronephrosis, along with some residual right renal calculi. No ureteral calculi are seen. He was admitted and treated with parenteral analgesics. He underwent ureteroscopy with laser lithotripsy, stone basketing, and stent insertion. He felt much better postoperatively and was discharged home. Procedures: Cystoscopy, right ureteroscopy with Holmium laser lithotripsy and stone basketing, right ureteral stent insertion on 08/24/2020. Patient Condition at Discharge: Good Plan - Discharge Summary Discharge Rx Participant: Yes New Discharge Prescriptions: No Action metFORMIN HCL 1,000 mg PO BID Glimepiride [Amaryl] 2 mg PO BID Tamsulosin [Flomax] 0.4 mg PO DAILY #30 cap HYDROcodone/APAP 5-325MG [[place] 5-325] 2 tab PO Q8H PRN PRN Reason: Pain Discharge Medication List Glimepiride [Amaryl] 2 mg PO BID 08/19/20 [History] metFORMIN HCL 1,000 mg PO BID 08/19/20 [History] Tamsulosin [Flomax] 0.4 mg PO DAILY #30 cap 08/22/20 [Rx] HYDROcodone/APAP 5-325MG [[place] 5-325] 2 tab PO Q8H PRN 08/23/20 [History] Follow up Appointment(s)/Referral(s): Ezio Navarro MD [STAFF PHYSICIAN] - 2 Weeks Patricia Medina MD [Primary Care Provider] - 1-2 days Patient Instructions/Handouts: Abdominal Pain (ED) Activity/Diet/Wound Care/Special Instructions: Diet as tolerated. Activity as tolerated. Please reassure patient that urinary frequency and gross hematuria are expected in patients with ureteral stents. Patient will undergo office cystoscopy with removal of ureteral stent in the office in 2 weeks. Discharge Disposition: HOME SELF-CARE
== END 2020-08-24 15:04 | disposition home or self-care (01) ==
LOC: EC 12:19 → 1SOBS 16:42
PROVIDERS: ADMIT Urology; ATTEND Urology
DX: N13.2 Hydronephrosis with renal and ureteral calculous obstruction (principal); E11.9 Type 2 diabetes mellitus without complications; K21.9 Gastro-esophageal reflux disease without esophagitis; H93.13 Tinnitus, bilateral; K76.0 Fatty (change of) liver, not elsewhere classified; G47.33 Obstructive sleep apnea (adult) (pediatric); Z99.89 Dependence on other enabling machines and devices; E66.01 Morbid (severe) obesity due to excess calories; Z68.41 Body mass index [BMI] 40.0-44.9, adult; Z79.84 Long term (current) use of oral hypoglycemic drugs; Z79.891 Long term (current) use of opiate analgesic; Z90.49 Acquired absence of other specified parts of digestive tract; Z87.01 Personal history of pneumonia (recurrent); Z87.442 Personal history of urinary calculi; Z87.891 Personal history of nicotine dependence; Z87.19 Personal history of other diseases of the digestive system; Z80.9 Family history of malignant neoplasm, unspecified
CPT/HCPCS: 96375 ×2; 96376 ×3; 96374; 99285; 36415; 80053; 83605; 85025; 81001; 87040; 82365; 87086; 74018; 74177; 52356; G0378 ×2; C2625; C1769; J2250; J2270; J0690; J2405 ×2; J2001; J0696; J3010; J1170 ×2; J1885; J0330; J2704; Q9967

== ENCOUNTER → 2020-11-25 | Outpatient (CLI) | payer OTHER ==
--- NOTE | 2020-11-26 08:48 | XR ---
KUB HISTORY: Kidney stone KUB on 4 images compared to prior KUB dated 08/23/2020 Overlying bowel gas may obscure detail. Retained fecal debris present throughout the distribution of the colon. Suspect calcifications are present in the left kidney, midpole region shows possible calci fication measuring 6 mm. Bones are stable. IMPRESSION: Findings suggest left nephrolithiasis
--- NOTE | 2020-11-26 13:24 | US ---
EXAMINATION TYPE: US kidneys/renal and bladder DATE OF EXAM: 11/25/2020 COMPARISON: NONE CLINICAL HISTORY: N20.0 kidney stone. History of kidney stones EXAM MEASUREMENTS: Right Kidney: 13.8 x 5.7 x 5.7 cm Left Kidney: 14.2 x 5.8 x 6.0 cm *Technical limitations due to patient's body habitus and overlying bowel content Right Kidney: no evidence of hydronephrosis Left Kidney: possible dense echogenic foci noted is within the mid renal pelvis region. No hydronephr osis is evident. Nonobstructing nonshadowing renal stone be considered. Bladder: appears wnl Bilateral Jets seen: no IMPRESSION: 1. Nonobstructing renal stone at the left renal pelvis may be present.
== END | disposition home or self-care (01) ==
LOC: RADUSWWP 15:35
PROVIDERS: ATTEND Urology
DX: N20.0 Calculus of kidney (principal)
CPT/HCPCS: 74018; 76770